=== PATIENT | male | born 1955 | race African-American/Black ===

== ENCOUNTER 2017-05-15 20:33 | Emergency (ER) | payer OTHER ==
--- NOTE | 2017-05-15 20:58 | ED Physician Documentation ---
General Adult - HISTORIAN Historian: patient - HPI Stated Complaint: Dizziness and HTN Chief Complaint: General Adult Onset: hours Timing: still present Severity: moderate Further Comments: yes (Pt is a 61 yo male with dizziness. Pt found some elevated bp's on a bp cuff at work, but results were inconsistent, with SBP ranging from 130's to 200, over a few minutes. Pt has not had cp, sob, diaphoresis. Pt has hx DM.) - ROS CONST: no problems EYES/ENT: none CVS/RESP: none GI/: none MS/SKIN/LYMPH: none NEURO/PSYCH: dizziness - PAST HX Past History: other (DMII; HTN) Allergies/Adverse Reactions: Allergies Allergy/AdvReac Type Severity Reaction Status Date / Time No Known Allergies Allergy Verified 05/15/17 20:51 Home Medications: Ambulatory Orders Medication Instructions Recorded Hydrochlorothiazide [Hydrodiuril] 25 mg PO D 03/17/12 Fluticasone Propionate [Flonase 1 spray NS QDAY 05/15/17 Nasal [place]] Metformin HCl [Glucophage] 500 mg PO BID 05/15/17 amLODIPine BESYLATE [Norvasc] 5 mg PO 2100 05/15/17 - SOCIAL HX Smoking History: chew - FAMILY HX Family History: No - VITAL SIGNS Vital Signs: Vital Signs Temp Pulse Resp BP Pulse Ox 97.4 F L 78 22 160/86 97 05/15/17 20:35 05/15/17 20:35 05/15/17 20:35 05/15/17 20:35 05/15/17 20:35 - REVIEWED ASSESSMENTS Nursing Assessment Reviewed: Yes Vitals Reviewed: Yes Progress - Progress Progress: Glucose = 227 Pt is not orthostatic (see nurse's notes). General Adult Physical Exam - PHYSICAL EXAM GENERAL APPEARANCE: mild distress EENT: pharynx normal NECK: normal inspection, supple RESPIRATORY: no resp distress, chest non-tender CVS: reg rate & rhythm, heart sounds normal ABDOMEN: soft, no organomegaly, normal bowel sounds BACK: normal inspection, no CVA tenderness SKIN: warm/dry, normal color EXTREMITIES: non-tender, normal range of motion, no evidence of injury NEURO: oriented X3, motor nml, sensation nml Discharge Clincal Impression: Hyperglycemia Referrals: Aston Allen [Primary Care Provider] - Disposition: HOME, SELF-CARE Decision to Admit: NO Decision Time: 22:16
[2017-05-15 21:34] LABS: BASOPHILS % 0.4 (0.0-1.5); EOSINOPHILS % 2.1 % (0.0-6.8); MEAN CORPUSCULAR VOLUME 96.4 fl (80.0-100.0); MONOCYTES % 3.8 % (0.0-11.0)
[2017-05-15 21:57] LABS: eGFR (African) > 60; eGFR (Non-African) 59
[2017-05-15 22:30] VITALS: BP 157/68
[2017-05-16 07:06] LABS: APPEARANCE,URINE CLEAR (CLEAR); COLOR,URINE YELLOW (YELLOW); OCCULT BLOOD,URINE TRACE-LYSED (NEGATIVE); PH URINE 5.5 (5.0 - 8.0)
== END 2017-05-15 22:20 | disposition home or self-care (01) ==
LOC: ED 20:33
DX: R73.9 Hyperglycemia, unspecified (principal); I10 Essential (primary) hypertension; R42 Dizziness and giddiness
CPT/HCPCS: 80053; 81002; 85025; 99282; 99283

== ENCOUNTER 2017-05-23 14:07 | Emergency (ER) | payer OTHER ==
[2017-05-23] MEDS ORDERED: MECLIZINE HCL 25 MG TABLET PO ONE (14:43)
[2017-05-23 14:50] LABS: BASOPHILS % 0.4 (0.0-1.5); EOSINOPHILS % 1.2 % (0.0-6.8); MEAN CORPUSCULAR HEMOGLOBIN 33.1 pg (28.0-34.0); MEAN CORPUSCULAR VOLUME 97.4 fl (80.0-100.0); MONOCYTES % 2.9 % (0.0-11.0)
[2017-05-23 15:04] LABS: APPEARANCE,URINE Clear (CLEAR); COLOR,URINE Yellow (YELLOW); OCCULT BLOOD,URINE Negative (NEGATIVE); PH URINE 5.5 (5.0 - 8.0); UROBILINOGEN URINE 0.2 Eu (0.2-1.0)
[2017-05-23 15:05] LABS: eGFR (African) > 60; eGFR (Non-African) > 60
--- NOTE | 2017-05-23 15:09 | ED Physician Documentation ---
General Adult - HISTORIAN Historian: patient - HPI Stated Complaint: dizziness Chief Complaint: General Adult Further Comments: yes (61 year old male patient presents with complaints of dizziness. Patient states he was seen in the Er two weeks ago for similar complaints. States the dizziness has continued. Reports dizziness today while driving. Has not followed up with PCP since ER visit.) - ROS CONST: no problems EYES/ENT: none CVS/RESP: none GI/: none. denies: vomiting, nausea MS/SKIN/LYMPH: none NEURO/PSYCH: headache, dizziness. denies: difficulty with speech - PAST HX Past History: hypertension Other History: diabetes Type 2 Allergies/Adverse Reactions: Allergies Allergy/AdvReac Type Severity Reaction Status Date / Time No Known Allergies Allergy Verified 05/23/17 14:26 Home Medications: Ambulatory Orders Medication Instructions Recorded Hydrochlorothiazide [Hydrodiuril] 25 mg PO D 03/17/12 Fluticasone Propionate [Flonase 1 spray NS QDAY 05/15/17 Nasal [place]] Metformin HCl [Glucophage] 500 mg PO BID 05/15/17 amLODIPine BESYLATE [Norvasc] 5 mg PO 2100 05/15/17 Insulin Detemir [Levemir Flextouch] 18 units SQ HS 05/23/17 Meclizine HCl [Antivert] 25 mg PO TID PRN #30 tablet 05/23/17 - SOCIAL HX Smoking History: chew - FAMILY HX Family History: No - VITAL SIGNS Vital Signs: Vital Signs Temp Pulse Resp BP Pulse Ox 98.5 F 54 L 16 161/92 97 05/23/17 14:08 05/23/17 14:41 05/23/17 14:08 05/23/17 14:41 05/23/17 14:08 - REVIEWED ASSESSMENTS Nursing Assessment Reviewed: Yes Vitals Reviewed: Yes Progress - Progress Progress: 1550 Patient states he feels a little better after meclizine. Encouraged patient to follow up with PCP; discuss PT consult for Ismael maneuver. ED Results Lab/Radiology - Lab Results Lab Results: Lab Results 05/23/17 05/23/17 14:45 14:45 WBC 10.30 K/ul K/ul (4.00-12.00) RBC 4.42 M/ul M/ul (3.90-5.20) Hgb 14.6 g/dL g/dL (12.0-18.0) Hct 43.1 % % (37.0-53.0) MCV 97.4 fl fl (80.0-100.0) MCH 33.1 pg pg (28.0-34.0) MCHC 34.0 g/dL g/dL (30.0-36.0) RDW 12.0 % % (11.3-14.3) Plt Count 201 K/mm3 K/mm3 (130-400) Neut % (Auto) 77.3 % % (39.0-79.0) Lymph % (Auto) 17.2 % % (16.0-50.0) Rains % (Auto) 2.9 % % (0.0-11.0) Eos % (Auto) 1.2 % % (0.0-6.8) Baso % (Auto) 0.4 (0.0-1.5) Neut # (Auto) 8.0 # k/uL H # k/uL (1.4-7.7) Lymph # (Auto) 1.8 # k/uL # k/uL (0.6-4.0) Rains # (Auto) 0.3 # k/uL # k/uL (0.0-0.9) Eos # (Auto) 0.1 # k/uL # k/uL (0.0-0.6) Baso # (Auto) 0.0 # k/uL # k/uL (0.0-0.5) Reactive Lymphs % 0.9 % % (0.0-5.0) Reactive Lymphs # 0.1 # k/uL # k/uL (0.0-0.8) Sodium 140 mmol/L mmol/L (136-145) Potassium 4.4 mmol/L mmol/L (3.5-5.1) Chloride 102 mmol/L mmol/L (98-107) Carbon Dioxide 23 mmol/L mmol/L (22-30) BUN 18 mg/dL mg/dL (9-20) Creatinine 1.20 mg/dL mg/dL (0.66-1.25) Estimated Creat Clear 141 Est GFR ( Amer) > 60 (60 - ) Est GFR (Non-Af Amer) > 60 (60 - ) Glucose 276 mg/dL H mg/dL (74-106) Calcium 9.8 mg/dL mg/dL (8.4-10.2) Total Bilirubin 0.7 mg/dL mg/dL (0.2-1.3) AST 24 U/L U/L (15-46) ALT 36 U/L U/L (13-69) Alkaline Phosphatase 76 U/L U/L (38-126) Total Protein 8.1 g/dL g/dL (6.3-8.2) Albumin 4.3 g/dL g/dL (3.5-5.0) - Orders Orders: ED Orders Category Date Time Status Orthostatics 1T Care 05/23/17 14:24 Active CBC/PLATELET/DIFF Stat Lab 05/23/17 14:45 Completed CMP Stat Lab 05/23/17 14:45 Completed UA W/MICRO IF INDICATED Stat Lab 05/23/17 15:00 Received Meclizine HCl [Antivert] Med 05/23/17 14:43 Discontinued 25 mg PO NOW ONE General Adult Physical Exam - PHYSICAL EXAM GENERAL APPEARANCE: mild distress EENT: eye inspection normal, ENT inspection normal, pharynx normal, no signs of dehydration, MAURICE, no nystagmus, TM's nml RESPIRATORY: no resp distress, chest non-tender, breath sounds normal CVS: reg rate & rhythm, heart sounds normal, equal pulses, no murmur, no gallop , PMI nml, no JVD, no friction rub, 24 ABDOMEN: soft, no organomegaly, normal bowel sounds, other (morbid obesity) SKIN: normal color, warm/dry, NR, INT, PAL, DR EXTREMITIES: non-tender, normal range of motion, no evidence of injury, no edema , J, [employer] NEURO: oriented X3, CN's nml as tested, motor nml, sensation nml, mood/affect nml Discharge Clincal Impression: Vertigo Prescriptions: Meclizine HCl [Antivert] 25 mg PO TID PRN #30 tablet PRN Reason: Dizziness Referrals: Aston Allen [Primary Care Provider] - 2 Days Additional Instructions: Rest Do not drive until you dizziness subsides. 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 You can use it 3 times a day as needed for dizziness. Follow up with your primary care doctor if you symptoms do not resolve or become worse. Condition: Stable Disposition: 01 HOME, SELF-CARE Decision to Admit: NO Decision Time: 15:15
[2017-05-23 16:46] VITALS: BP 148/72
== END 2017-05-23 16:00 | disposition home or self-care (01) ==
LOC: ED 14:07
DX: H81.49 Vertigo of central origin, unspecified ear (principal)
CPT/HCPCS: 36415; 80053; 81002; 85025